=== PATIENT | male | born 1985 | race Caucasian/White ===

== ENCOUNTER 2021-03-22 21:01 | Emergency (ER) | payer OTHER | END 2021-03-22 22:14 | disposition home or self-care (01) | LOC: ERS 21:01 | DX: S90.32XA Contusion of left foot, initial encounter (principal); W22.8XXA Striking against or struck by other objects, initial encounter ==

== ENCOUNTER 2022-10-29 10:52 | Emergency (ER) | payer OTHER ==
[2022-10-29 12:03] LABS: Mean Corpuscular HGB CONC 34.5 g/dL (32.0-36.0); Mean Corpuscular Hemoglobin 29.8 pg (27.0-31.0); Mean Corpuscular Volume 86.5 fl (78.0-98.0); Mean Platelet Volume 8.5 fL (7.4-10.4); Platelet Count 186 10x3/uL (130-400); RBC Distribution Width 11.8 % (11.5-14.5); Red Blood Cell (RBC) Count 5.02 mill/uL (4.70-6.10); White Blood Cell (WBC) Count 4.3 10x3/uL (4.8-10.8)
[2022-10-29 12:22] LABS: ALT (SGPT) 116 U/L (8-55); AST (SGOT) 95 U/L (5-34); Albumin 4.4 g/dL (3.5-5.0); Alkaline Phosphatase 77 U/L (40-110); Anion Gap 12 mmol/L (10-20); BUN (Urea Nitrogen) 15 mg/dL (8.9-20.6); Bilirubin, Total 0.8 mg/dL (0.2-1.2); Calc. Creatinine Clearance 0 mL/min (70-130); Carbon Dioxide 23 mmol/L (22-29); Chloride 107 mmol/L (98-107); Estimated GFR 108; Globulin 2.8 g/dL (2.4-3.5); Glucose 90 mg/dL (70-105); Large Platelets SLIGHT; Lymphocytes 48 % (21-51); MDiff Complete? YES; Monocytes 9 % (0-10); Neutrophil 42 % (42-75); Platelet Morphology Comment Appears Adequate; Protein, Total 7.2 g/dL (6.0-8.3); Sodium 138 mmol/L (136-145)
[2022-10-29] MEDS ORDERED: Ketorolac Tromethamine 30 MG/ML VIAL ONE (12:49)
[2022-10-29] MEDS ORDERED: Ondansetron PF 4 MG/2 ML Vial ONE (12:49)
== END 2022-10-29 13:50 | disposition home or self-care (01) ==
LOC: ERS 10:52
DX: J11.1 Influenza due to unidentified influenza virus with other respiratory manifestations (principal)
CPT/HCPCS: 36415; 71045; 80053; 84484; 85025; 93005; 96361; 96374; 96375; J1885; J2405

== ENCOUNTER 2024-04-07 12:57 | Emergency (ER) | payer OTHER ==
[2024-04-07] MEDS ORDERED: Ondansetron PF 4 MG/2 ML Vial ONE (14:28)
[2024-04-07] MEDS ORDERED: Acetaminophen 500 MG TAB ONE (14:35)
[2024-04-07 15:05] LABS: #Basophils 0.03 10x3/uL (0.0-0.2); #Eosinphils Less than 0.03 10x3/uL (0.0-0.7); %Basophils 0.2 % (0.0-1.0); %Eosinophils 0.1 % (0.0-10.0); %Lymphocytes 12.4 % (21.0-51.0); %Monocytes 7.4 % (0.0-10.0); %Neutrophils 79.4 % (42.0-75.0); Hematocrit 43.5 % (42.0-52.0); Hemoglobin 14.6 g/dL (14.0-18.0); Mean Corpuscular HGB CONC 33.6 g/dL (32.0-36.0); Mean Corpuscular Volume 83.3 fL (78.0-98.0); Mean Platelet Volume 10.2 fL (7.4-10.4); Platelet Count 298 10x3/uL (130-400); RBC Distribution Width 13.1 % (11.5-14.5); Red Blood Cell (RBC) Count 5.22 mill/uL (4.70-6.10)
[2024-04-07 15:30] LABS: ALT (SGPT) 50 U/L (8-55); AST (SGOT) 22 U/L (5-34); Albumin 4.2 g/dL (3.5-5.0); Alkaline Phosphatase 48 U/L (40-110); Anion Gap 12 mmol/L (10-20); BUN (Urea Nitrogen) 13 mg/dL (8.9-20.6); Bilirubin, Total 0.4 mg/dL (0.2-1.2); Calc. Creatinine Clearance 0 mL/min (70-130); Calcium 10.1 mg/dL (7.8-10.44); Carbon Dioxide 26 mmol/L (22-29); Chloride 108 mmol/L (98-107); Estimated GFR 103; Globulin 2.9 g/dL (2.4-3.5); Glucose 99 mg/dL (70-105); Lipase 49 U/L (8-78); Potassium 4.2 mmol/L (3.5-5.1); Protein, Total 7.1 g/dL (6.0-8.3); Sodium 142 mmol/L (136-145)
[2024-04-07 17:17] LABS: Bacteria/HPF None Seen HPF (None Seen); Bilirubin Negative (Negative); Blood, Urine 1+ (Negative); CAUTI Indications for Culture Pelvic or flank pain; Glucose, Urine (Dipstick) Normal (Negative); Ketone, Urine Negative (Negative); Leukocyte Negative Leu/uL (Negative); Nitrite Negative (Negative); Protein, Urine (Dipstick) 50 mg/dL (Neg-Trace); Squamous Epithelial 0-3 HPF (0-3); Urobilinogen Normal mg/dL (Less than 2); pH, Urine 5.5 (5.0-9.0)
[2024-04-07 17:26] LABS: Clarity Cloudy (Clear)
[2024-04-07 17:28] LABS: Urine Culture Reflex No No
== END 2024-04-07 17:59 | disposition home or self-care (01) ==
LOC: ERS 12:57
DX: D72.829 Elevated white blood cell count, unspecified (principal); R11.2 Nausea with vomiting, unspecified
CPT/HCPCS: 36415; 80053; 81001; 83690; 85025; 96361; 96374; J2405

== ENCOUNTER 2024-04-10 21:26 | Emergency (ER) | payer OTHER ==
[~2024-04-10 21:26] MED LIST: Iopamidol-370 76% 500 ML MDV (1 ML CHARGE) ONE
[2024-04-10] MEDS ORDERED: Ondansetron PF 4 MG/2 ML Vial ONE (22:30)
[2024-04-10] MEDS ORDERED: Morphine 4 MG/ML VIAL ONE (22:30)
[2024-04-10 22:50] LABS: #Basophils 0.05 10x3/uL (0.0-0.2); %Basophils 0.5 % (0.0-1.0); %Eosinophils 0.7 % (0.0-10.0); %Lymphocytes 18.8 % (21.0-51.0); %Monocytes 7.6 % (0.0-10.0); %Neutrophils 71.8 % (42.0-75.0); Hematocrit 45.5 % (42.0-52.0); Hemoglobin 15.4 g/dL (14.0-18.0); Mean Corpuscular HGB CONC 33.8 g/dL (32.0-36.0); Mean Corpuscular Hemoglobin 28.7 pg (27.0-31.0); Mean Corpuscular Volume 84.9 fL (78.0-98.0); Platelet Count 296 10x3/uL (130-400); RBC Distribution Width 12.9 % (11.5-14.5); Red Blood Cell (RBC) Count 5.36 mill/uL (4.70-6.10)
[2024-04-10 23:21] LABS: ALT (SGPT) 48 U/L (8-55); AST (SGOT) 22 U/L (5-34); Albumin 4.2 g/dL (3.5-5.0); Alkaline Phosphatase 56 U/L (40-110); Anion Gap 11 mmol/L (10-20); BUN (Urea Nitrogen) 18 mg/dL (8.9-20.6); Bilirubin, Total 0.6 mg/dL (0.2-1.2); Calc. Creatinine Clearance 0 mL/min (70-130); Carbon Dioxide 28 mmol/L (22-29); Chloride 102 mmol/L (98-107); Estimated GFR 96; Glucose 103 mg/dL (70-105); Lipase 36 U/L (8-78); Potassium 4.3 mmol/L (3.5-5.1); Protein, Total 7.2 g/dL (6.0-8.3); Sodium 137 mmol/L (136-145)
[2024-04-10] MEDS ORDERED: Ketorolac Tromethamine 30 MG (1 mL) VIAL ONE (23:36)
[2024-04-11 00:44] LABS: Troponin I Less than 0.010 ng/mL (< 0.028)
[2024-04-11 00:48] LABS: Bacteria/HPF None Seen HPF (None Seen); Bilirubin Negative (Negative); Blood, Urine Negative (Negative); CAUTI Indications for Culture Dysuria,urgency,freq; Clarity Clear (Clear); Glucose, Urine (Dipstick) Normal (Negative); Ketone, Urine Negative (Negative); Leukocyte Negative Leu/uL (Negative); Nitrite Negative (Negative); Protein, Urine (Dipstick) Negative (Neg-Trace); RBC/HPF 0-3 HPF (0-3); Specific Gravity, Urine 1.031 (1.002-1.036); Squamous Epithelial None Seen HPF (0-3); Urobilinogen Normal mg/dL (Less than 2); WBC/HPF 0-3 HPF (0-3)
[2024-04-11 00:52] LABS: Urine Culture Reflex No No
== END 2024-04-11 00:45 | disposition home or self-care (01) ==
LOC: ERS 21:26
DX: R10.9 Unspecified abdominal pain (principal); R11.2 Nausea with vomiting, unspecified; F17.200 Nicotine dependence, unspecified, uncomplicated
CPT/HCPCS: 71045; 74177; 80053; 81001; 83690; 84484; 85025; 93005; 96374; 96375; J1885; J2270; J2405; Q9967

== ENCOUNTER 2025-01-16 13:03 | Emergency (ER) | payer OTHER ==
[2025-01-16] MEDS ORDERED: Ketorolac Tromethamine 30 MG (1 mL) VIAL ONE (14:14)
[2025-01-16] MEDS ORDERED: Baclofen 10 MG TAB PO SCH (14:30)
== END 2025-01-16 14:40 | disposition home or self-care (01) ==
LOC: ERS 13:03
DX: M43.6 Torticollis (principal); M62.838 Other muscle spasm; F17.290 Nicotine dependence, other tobacco product, uncomplicated; W26.8XXA Contact with other sharp object(s), not elsewhere classified, initial encounter; Y99.0 Civilian activity done for income or pay
CPT/HCPCS: 96372; 99282; J1885